=== PATIENT | male | born 1980 | race Caucasian/White ===

== ENCOUNTER → 2016-05-02 | Outpatient (CLI) | payer OTHER ==
--- NOTE | 2016-05-02 09:59 | MR ---
MRI Cervical Spine (Without Contrast) Indication: 36-year-old male with ankylosing spondylitis. Technique: Sagittal T1, T2, and axial T2, 3D gradient echo MR sequences of the cervical spine without contrast. Comparison: None. Findings: The cervical spine is normally aligned. Bone marrow signal is normal. No reactive bone mar row edema or reactive periostitis along the anterior longitudinal ligament. No fracture, bone marrow replacing lesion, or paraspinal mass. Cerebellar tonsils are in normal position. Cervical spinal cor d is normal caliber. No cord edema or myelomalacia. C1-C2: Widely patent foramen magnum and C1-C2 level. C2-C3: Widely patent central canal and neural foramina. C3-C4: Left posterolateral disk herniation (protrusion) resulting in mild narrowing of the left ventr al lateral recess and moderate to severe stenosis of the left C3-C4 neural foramen. The right neural foramen is widely patent. C4-C5: Disk desiccation combined with left osteophyte disk complex and facet spurs results in mild l eft neural foraminal narrowing. The central canal and right neural foramen are widely patent. C5-C6: Widely patent central canal and neural foramina. Normal disk. C6-C7: Broad-based left posterolateral disk herniation (protrusion) resulting in moderate central can al narrowing, severe left ventrolateral recess stenosis and moderate to severe left neural foraminal narrowing. The left ventral aspect of the spinal cord is minimally compressed. Disk bulge and facet h ypertrophy result in mild right neural foraminal narrowing. C7-T1: Normal disk. Central canal and neural foramina are widely patent. Impression: 1. No reactive bone marrow edema or features of ankylosing spondylitis. 2. Left posterolateral disk herniation at C3-C4 resulting in narrowing of the left neural foramen at ventrolateral recess. 3. Left posterolateral disk herniation (protrusion) at C6-C7 resulting in central canal narrowing and left neural foraminal stenosis.
--- NOTE | 2016-05-02 10:55 | MR ---
MRI of the Lumbar Spine (Without Contrast) at 0801 hours Clinical Indications: Ankylosing spondylitis, sciatica, low back pain, M54.42, M54.40. Comparison: MRI December 2013 Technique: Sagittal and axial T1 and T2 and sagittal STIR MR sequences of the lumbar spine without co ntrast. Axial imaging from T12-S1. Findings: Lumbar vertebral bodies are of normal height without compression fractures. Conus medulla ris appears normal and ends at L2. T11-T12: Sagittal images demonstrate moderate degenerative disk disease with ventral osteophytes. No disk herniation, stenosis or cord compression. T12-L1: No disk herniation or stenosis. L1-L2: No disk herniation or stenosis. L2-L3: No disk herniation or stenosis. L3-L4: No disk herniation or stenosis. L4-L5: Mild degenerative disk disease with 4 mm central disk herniation, protrusion, resulting in mil d to moderate central canal stenosis without neural foraminal stenosis. Slight interval worsening sin ce previous study. L5-S1: Mild degenerative disk disease with previous left laminectomy with residual left perineural gr anulation tissue but no evidence of recurrent disk herniation. No central canal stenosis or neural fo raminal stenosis. Impression: 1. L4-L5: Mild to moderate central canal stenosis secondary to central disk herniation, protrusion. 2. L5-S1: Postsurgical changes with previous left laminectomy and left perineural granulation tissue demonstrating no recurrent disk herniation, central canal stenosis or neural foraminal stenosis. 3. Please see above findings at specific disk levels.
== END ==
LOC: FIMAGING 07:07
PROVIDERS: ATTEND Physician Assistant Surgical
DX: M48.06 Spinal stenosis, lumbar region (principal); M51.26 Other intervertebral disc displacement, lumbar region; M50.20 Other cervical disc displacement, unspecified cervical region; Z98.890 Other specified postprocedural states

== ENCOUNTER 2017-01-15 16:12 | Emergency (ER) | payer OTHER ==
[2017-01-15 16:19] VITALS: RESP 16
--- NOTE | 2017-01-15 18:18 | EDPHY ---
H & P Smoking Status: Never smoked Time Seen by Provider: 01/15/17 18:11 HPI/ROS: CHIEF COMPLAINT: Headache HISTORY OF PRESENT ILLNESS: 36-year-old male presents to the emergency department with ongoing "migraine headache ". The patient states that he has had migraine headaches his entire life. He states that they are typically once or twice a month. He states this particular migraine has lasted longer than normal. He feels that it is the same typical headache that he gets. He is scheduled to see a headache specialist next week, however he was concerned that his headache has not gone away. Denies any reported trauma. No visual complaints. He does not feel dizzy. He does feel occasionally nauseous although no vomiting. No fevers or chills. REVIEW OF SYSTEMS: Constitutional: No fever, no chills. Eyes: No double or blurry vision. ENT: No sore throat. Respiratory: No cough, no shortness of breath. Cardiac: No chest pain. Gastrointestinal: No abdominal pain, vomiting or diarrhea. Genitourinary: No dysuria. Musculoskeletal: No neck or back pain. Skin: No rashes. Neurological: headache. (Shanice Keys) Past Medical/Surgical History: Migraine headaches, chronic back pain on opiates (Shanice Keys) Social History: (Shanice Keys) Physical Exam: General Appearance: Alert, no distress. Mentating normally and answering questions appropriately. Vital signs are stable. Eyes: Pupils equal and round. Extraocular motions are all intact. ENT: Mouth: Mucous membranes moist. Respiratory: No wheezing, rhonchi, or rales, lungs are clear to auscultation. Cardiovascular: Regular rate and rhythm. Gastrointestinal: Abdomen is soft and nontender, no masses, no rebound or guarding, bowel sounds normal. Neurological: Alert and oriented x 3, cranial nerves II through XII grossly intact Skin: Warm and dry, no rashes. Musculoskeletal: Nontender to palpate along the cervical, thoracic or lumbar spine. Neck is supple. Extremities: Full range of motion and no peripheral edema. Psychiatric: Patient is oriented X 3, there is no agitation. (Shanice Keys) Constitutional: Initial Vital Signs Temperature (C) 36.7 C 01/15/17 16:15 Heart Rate 81 01/15/17 16:15 Respiratory Rate 16 01/15/17 16:15 Blood Pressure 162/92 H 01/15/17 16:15 O2 Sat (%) 97 01/15/17 16:15 O2 Delivery Mode Room Air Allergies/Adverse Reactions: Penicillins Allergy (Severe, Verified 01/15/17 16:16) Anaphylaxis Home Medications: Medication Instructions Recorded SUMAtriptan [Imitrex 25 MG (*)] 25 mg PO 01/15/17 Medical Decision Making - Diagnostics Imaging: Discussed imaging studies w/ cafe lead Radiologist - Diagnostics Imaging Results: CT imaging of the brain was normal. This was reported to me by the radiologist. (Shanice Keys) ED Course/Re-evaluation: 36-year-old male presents with a history of chronic headaches. He feels that these are likely migraine. He is scheduled to see a headache specialist next week. Because his symptoms have continued who presents to the emergency department for evaluation. He has a normal neurologic examination. I discussed the pros and cons of CT imaging of his brain including radiation exposure and the patient requests CT scan. Non con CT brain was normal. Patient had an IV established and was given 10 mg of Decadron IV, 30 mg of Toradol IV, and IV normal saline. Patient feels that his headache is only slightly improved. He is requesting to be discharged home. The patient has no focal neurologic findings. Has a history of chronic headaches and although this feels like a typical headache for him and has just lasted longer than it normally does. I encouraged her to keep scheduled follow- up appointment with the neurologist. He was instructed to return to the emergency department if he had any change in symptoms or if he felt worse in any way. (Shanice Keys) Differential Diagnosis: Headache including but not limited to subarachnoid hemorrhage, migraine headache , tension headache and infectious causes such as meningitis, pharyngitis and sinusitis. (Shanice Keys) Other Provider: The patient was evaluated and managed by the Physician Sheet Metal Worker Supervisor/ Nurse Practitioner. My co-signature indicates that I have reviewed this chart and I agree with the findings and plan of care as documented. I am the secondary supervising physician. (Michelle Patino) - Data Points Medications Given: Discontinued Medications Dexamethasone (Decadron Injection) 10 mg IVP EDNOW ONE Stop: 01/15/17 18:43 Last Admin: 10/18/17 19:23 Dose: 10 mg Ketorolac Tromethamine (Toradol) 30 mg IVP EDNOW ONE Stop: 01/15/17 18:43 Last Admin: 01/15/17 19:23 Dose: 30 mg Ondansetron HCl (Zofran) 4 mg IVP EDNOW ONE Stop: 01/15/17 18:43 Last Admin: 01/15/17 19:23 Dose: 4 mg Departure - Departure Disposition: Home, Routine, Self-Care Clinical Impression: Headache Qualifiers: Headache type: unspecified Headache chronicity pattern: acute headache Intractability: not intractable Qualified Code(s): R51 - Headache Condition: Good Instructions: Migraine Headache (ED) Additional Instructions: Keep scheduled appointment with your headache specialist, neurologist. He was also given the name of neurologist in [place] that you can follow up with as well. Continue your medications as prescribed. Return to the emergency department if her symptoms change, if he developed worsening headache or if you feel worse in any way. Referrals: Shoaib Ndiaye MD [Medical Doctor] - As per Instructions (Neurologist)
[2017-01-15] MEDS ORDERED: ONDANSETRON 4 MG/2 ML VIAL IVP ONE (18:42)
[2017-01-15] MEDS ORDERED: DEXAMETHASONE 10 MG/ML VIAL IVP ONE (18:42)
[2017-01-15] MEDS ORDERED: KETOROLAC 30 MG/1 ML SDV IVP ONE (18:42)
[2017-01-15 20:26] VITALS: BP 121/72; PULSE 70; TEMP 97.7; O2SAT 96
== END 2017-01-15 20:24 | disposition home or self-care (01) ==
DX: R51 Headache (principal)
CPT/HCPCS: 96374; J1100; J1885; J2405